=== PATIENT | male | born 1965 | race Caucasian/White ===

== ENCOUNTER 2020-01-14 11:29 | Emergency (ER) | payer OTHER, SELFPAY ==
[2020-01-14 11:51] VITALS: BP 122/84; PULSE 87; RESP 16; TEMP 36.4; O2SAT 98
--- NOTE | 2020-01-14 11:57 | DI.RAD.S_ITS ---
PROCEDURE: XR FOOT RT MIN 3V INDICATIONS: atraumatic pain top of foot w/ bruising, no swelling TECHNIQUE: 30 views of the foot were acquired. COMPARISON: None. FINDINGS: Bones: No fractures or dislocations. No suspicious bony lesions. Soft tissues: No tibiotalar joint effusion. Achilles tendon appears normal. IMPRESSION: No acute radiographic findings. If pain persists, followup imaging in 5-7 days is recommended to exclude occult fracture. Dictated by: Lenka Callejas M.D. on 01/14/2020 at 12:18 Approved by: Lenka Callejas M.D. on 01/14/2020 at 12:18
--- NOTE | 2020-01-14 14:03 | ED.EXTPRO ---
HPI - Extremity Problem <YANET Arevalo - Last Filed: 01/14/20 20:50> General Chief complaint: Extremity Problem,Nontraumatic Stated complaint: Rt ft pain with a purple bruise x2 days Time Seen by Provider: 01/14/20 11:40 History of Present Illness HPI Narrative: 54yo male presents to the emergency department for a bruise to the right foot that he noted last night. Initially, he did not miss any pain this morning he woke up and noticed that he has a dull aching 4/10 pain to lateral aspect of his right foot that is worse when he inverts his foot with weight on it. Patient states he has had a history of a fracture in his foot and often experiences pain in his foot with significant activity. He does not remember any direct trauma or any specific episode of twisting or falling. Patient denies any other symptoms such as numbness, tingling, calf pain, ankle pain, fevers, chills, nausea, vomiting, diarrhea, chest pain, or any other concerns. Related Data Home Medications Medication Instructions Recorded Confirmed acyclovir [Zovirax] 200 mg PO QDAY #0 10/15/16 01/14/20 Allergies Allergy/AdvReac Type Severity Reaction Status Date / Time No Known Drug Allergies Allergy Verified 01/14/20 11:56 Review of Systems <YANET Arevalo - Last Filed: 01/14/20 20:50> Review of Systems Narrative: REVIEW OF SYSTEMS: GENERAL: Denies fever or chills. HENT: No head trauma. EYES: No vision changes. RESPIRATORY: No shortness of breath or cough. GASTROINTESTINAL: No vomiting or diarrhea. MUSCULOSKELETAL: Complains of right foot pain and bruising, see HPI. Trauma. INTEGUMENTARY: No rash, lesions, or pruritus. NEURO: No numbness, tingling. Patient History <YANET Arevalo - Last Filed: 01/14/20 20:50> Medical History No significant medical problems (Acute) Social History Smoking Status: Never smoker Smoking Status: Never smoker alcohol intake frequency: 3 or more drinks per day Substance Use Type: does not use Exam <YANET Arevalo Last Filed: 01/14/20 20:50> Initial Vital Signs Initial Vital Signs: Vital Signs Temperature 97.6 F 01/14/20 11:51 Pulse Rate 87 01/14/20 11:51 Respiratory Rate 16 01/14/20 11:51 Blood Pressure 122/84 01/14/20 11:51 Pulse Oximetry 98 01/14/20 11:51 PHYSICAL EXAMINATION: GENERAL: Well groomed, alert, and cooperative. Answers questions promptly and appropriately. Vital signs noted. HENT: Normocephalic, atraumatic. EYES: Symmetrical, sclera white, no periorbital swelling. RESPIRATORY: Normal respiratory rate, trachea midline, airway patent. No stridor, nasal flaring or accessory muscle use. MUSCULOSKELETAL: A 6 cm x 4 cm area of ecchymosis noted to top of right foot above phalanges #2-5. EXTREMITIES: CMS intact. Pedal pulses 2+ and equal bilaterally. SKIN: Warm, dry, soft, appropriate color for ethnicity. No lesions, rashes, or wounds. NEURO: Alert and Oriented X 3. No sensory deficits. PSYCH: Appropriate affect and mood. <Stephen Adames MD - Last Filed: 01/15/20 07:42> Initial Vital Signs Initial Vital Signs: Vital Signs Temperature 97.6 F 01/14/20 11:51 Pulse Rate 87 01/14/20 11:51 Respiratory Rate 16 01/14/20 11:51 Blood Pressure 122/84 01/14/20 11:51 Pulse Oximetry 98 01/14/20 11:51 Course <YANET Arevalo - Last Filed: 01/14/20 20:50> Orders Ordered: ED Orders 01/14/20 11:57 XR foot RT min 3V Stat Vital Signs Vital signs: Vital Signs - 8 hr 01/14/20 11:51 Temperature 97.6 F Pulse Rate 87 Respiratory Rate 16 Blood Pressure 122/84 Pulse Oximetry 98 <Stephen Adames MD - Last Filed: 01/15/20 07:42> Orders Ordered: ED Orders 01/14/20 11:57 XR foot RT min 3V Stat Vital Signs Vital signs: Vital Signs - 8 hr 01/14/20 11:51 Temperature 97.6 F Pulse Rate 87 Respiratory Rate 16 Blood Pressure 122/84 Pulse Oximetry 98 MDM - Extremity (Nontraumatic) <YANET Arevalo - Last Filed: 01/14/20 20:50> Medical Records Attestation: I reviewed the patient's medical records. Lab Data Attestation: I reviewed the patient's lab results. Imaging Data Extremity x-ray #1: Radiologist's Impression: [address] [address] XRay Report Signed Patient: Ugo BrowneMR#: [id number] : 1965Acct:[id number] Age/Sex: 54 / MDate of Service: 01/14/20 Loc: ED Accession Number: [id number] Procedure: XR foot RT min 3V Ordering Provider: Stephen Adames MD PROCEDURE: XR FOOT RT MIN 3V INDICATIONS: atraumatic pain top of foot w/ bruising, no swelling TECHNIQUE: 30 views of the foot were acquired. COMPARISON: None. FINDINGS: Bones: No fractures or dislocations. No suspicious bony lesions. Soft tissues: No tibiotalar joint effusion. Achilles tendon appears normal. IMPRESSION: No acute radiographic findings. If pain persists, followup imaging in 5-7 days is recommended to exclude occult fracture. Dictated by: Lenka Callejas M.D. on 01/14/2020 at 12:18 Approved by: Lenka Callejas M.D. on 01/14/2020 at 12:[address] [facility] Narrative Medical decision making narrative: 54-year-old male presents emergency department for bruise on right foot associated pain. Does not recall direct trauma to this area, has a history of previous injuries from which he suffers from chronic pain to his foot. X-rays negative for fracture. Patient is able to bear weight on foot without difficulty. Differential includes most likely contusion versus sprain due to description of pain and location of pain. Less likely fracture due to negative x-ray. Patient was encouraged to wear an Fredi wrap to help with stability. Use ice, ibuprofen, and elevate the leg to help with pain. He was encouraged to follow up with primary care provider or an orthopedic if he continues to have pain. Patient agreed to plan of care verbalized understanding. Return precautions given. Discharge Plan Departure Patient Disposition: Home Clinical Impression: Foot sprain Qualifiers: Encounter type: initial encounter Laterality: right Qualified Code(s): S93.601A - Unspecified sprain of right foot, initial encounter Discharge Date/Time: 01/14/20 14:51 Instructions: DI for Foot Sprain Activity Restrictions/Additional Instructions: Thank you for entrusting me with your care today. As discussed, your x-rays negative for any fractures. Your pain and bruising is most likely caused by a sprain of your ligament or strain of your tendons in your foot. I recommend using an Fredi wrap, ice, and ibuprofen as needed for pain. Please elevate your foot when possible. Follow-up with your primary care provider in the next 2 weeks for further evaluation if symptoms continue. I have included a referral to an orthopedic if your symptoms continue as well. Return emergency department for any new or worsening symptoms such as fevers, severe pain, numbness, tingling, or any other concerns. Prescriptions: No Action acyclovir [Zovirax] 200 MG capsule 200 mg PO QDAY Qty: 0 RF: 0 Referrals: Steven Tate MD [Physician] -
== END 2020-01-14 14:51 | disposition home or self-care (01) ==
PROVIDERS: Emergency Provider Nurse Practitioner
DX: S93.601A Unspecified sprain of right foot, initial encounter (principal)
CPT/HCPCS: 73630; 99283